=== PATIENT | male | born 1990 | race Caucasian/White ===

== ENCOUNTER 2016-06-29 23:33 | Emergency (ER) | payer OTHER ==
[2016-06-29] MEDS ORDERED: AMOXICILLIN 250 MG CAPSULE PO STA (23:48)
[2016-06-29] MEDS ORDERED: DEXAMETHASONE 10 MG/ML VIAL PO STA (23:48)
[2016-06-29] MEDS ORDERED: CETIRIZINE 10 MG TABLET PO STA (23:48)
[2016-06-29] MEDS ORDERED: CETIRIZINE 10 MG TABLET ONE (23:50)
[2016-06-29] MEDS ORDERED: AMOXICILLIN 250 MG CAPSULE PO ONE (23:50)
[2016-06-29] MEDS ORDERED: DEXAMETHASONE 10 MG/ML VIAL ONE (23:50)
[2016-06-29] MEDS ORDERED: CHERRY SYRUP 10 ML UDC PO ONE (23:51)
== END 2016-06-29 23:55 | disposition home or self-care (01) ==
DX: H66.003 Acute suppurative otitis media without spontaneous rupture of ear drum, bilateral (principal)
CPT/HCPCS: 99283; A9270

== ENCOUNTER 2016-12-04 03:08 | Emergency (ER) | payer OTHER ==
[2016-12-04 03:20] VITALS: BP 125/72
[2016-12-04] MEDS ORDERED: DEXAMETHASONE 10 MG/ML VIAL PO STA (03:28)
[2016-12-04 03:31] LABS: RAPID STREP SCREEN REAGENT QC YELLOW (YELLOW)
--- NOTE | 2016-12-04 03:31 | ED Physician Documentation ---
PD HPI HEENT - Stated complaint Stated Complaint: SORE THROAT - Chief complaint Chief Complaint: General - History obtained from History obtained from: Patient - History of Present Illness Timing - onset: Yesterday Timing - duration: Hours Timing - details: Gradual onset, Still present Location: Left ear, Throat Improves: Medication Worsens: Swalllowing Associated symptoms: Swollen nodes, Headache, Cough Similar symptoms before: Diagnosis (tonsilitis) Recently seen: Not recently seen - Additional information Additional information: 26-year-old male with a history of tonsillitis recurrent has developed a sore throat yesterday afternoon. The patient has had some slight cough and some pain in the left ear as well. Review of Systems Constitutional: denies: Fever Eyes: denies: Decreased vision Ears: reports: Ear pain Nose: denies: Rhinorrhea / runny nose, Congestion Throat: reports: Sore throat Cardiac: denies: Chest pain / pressure, Palpitations Respiratory: reports: Cough. denies: Dyspnea GI: denies: Vomiting : denies: Dysuria PD PAST MEDICAL HISTORY - Past Medical History Past Medical History: No Cardiovascular: None Respiratory: None Neuro: None Endocrine/Autoimmune: None GI: None : None HEENT: None Psych: None Musculoskeletal: None Derm: None - Past Surgical History Past Surgical History: No - Present Medications Home Medications: Ambulatory Orders Medication Instructions Recorded Confirmed Amoxicillin 500 mg PO TID #20 capsule 06/29/16 Cetirizine [ZyrTEC] 10 mg PO DAILY #15 tablet 06/29/16 Dexamethasone [Decadron] 4 mg PO DAILY #5 tablet 06/29/16 Amoxicillin 500 mg PO TID #30 capsule 12/04/16 - Allergies Allergies/Adverse Reactions: Allergies Allergy/AdvReac Type Severity Reaction Status Date / Time No Known Drug Allergies Allergy Verified 12/04/16 03:21 - Social History Does the pt smoke?: No Smoking Status: Never smoker Does the pt drink ETOH?: No Does the pt have substance abuse?: No - Immunizations Immunizations are current?: Yes - POLST Patient has POLST: No PD ED PE NORMAL - Vitals Vital signs reviewed: Yes (Tachycardic) - General General: No acute distress, Well developed/nourished - HEENT HEENT: Atraumatic, PERRL, EOMI, Other (The left TM is erythematous with rounding of the landmarks the right has only minimal inflammation in the attic. The pharynx is with 2+ cryptic tonsils with exudate worse on the right than left.) - Neck Neck: Supple, no meningeal sign, No bony TTP - Cardiac Cardiac: RRR, No murmur - Respiratory Respiratory: No respiratory distress, Clear bilaterally - Abdomen Abdomen: Soft, Non tender - Back Back: No CVA TTP, No spinal TTP - Derm Derm: Normal color, No rash - Extremities Extremities: No deformity, No edema - Neuro Neuro: No motor deficit, No sensory deficit, Normal speech - Psych Psych: Normal mood, Normal affect Results - Vitals Vitals: Vital Signs - 24 hr 12/04/16 03:18 Temperature 37.0 C Heart Rate 101 H Respiratory 16 Rate Blood Pressure 125/72 O2 Saturation 100 Oxygen O2 Source Room air - Labs Labs: Laboratory Tests 12/04/16 03:15 Group A Strep Rapid POSITIVE H PD MEDICAL DECISION MAKING - ED course Complexity details: reviewed results, re-evaluated patient, considered differential, d/w patient ED course: 26-year-old male with acute tonsillitis and left otitis is given dexamethasone 10 mg orally. He is given PO amoxicillin as well with a + strep screen. Departure - Departure Disposition: 01 Home, Self Care Clinical Impression: Strep pharyngitis Condition: Stable Instructions: ED Strep Pharyngitis Conf Follow-Up: Jeannette Negrete MD [Primary Care Provider] - Prescriptions: Amoxicillin 500 mg PO TID #30 capsule Forms: Activity restrictions
[2016-12-04] MEDS ORDERED: DEXAMETHASONE 10 MG/ML VIAL ONE (03:34)
[2016-12-04] MEDS ORDERED: AMOXICILLIN 250 MG CAPSULE PO STA (03:35)
[2016-12-04] MEDS ORDERED: CHERRY SYRUP 10 ML UDC PO ONE (03:35)
[2016-12-04] MEDS ORDERED: AMOXICILLIN 250 MG CAPSULE PO ONE (03:39)
== END 2016-12-04 03:40 | disposition home or self-care (01) ==
LOC: ED 03:08
DX: J02.0 Streptococcal pharyngitis (principal); H66.92 Otitis media, unspecified, left ear
CPT/HCPCS: 87430; 99283; A9270